=== PATIENT | male | born 1945 | race Caucasian/White ===

== ENCOUNTER 2020-01-18 14:43 | Emergency (ER) | payer SELFPAY ==
[~2020-01-18] VITALS: Ht 177.8 cm; Wt 68.2 kg
[2020-01-18 16:14] VITALS: BP 139/85
[2020-01-18 16:54] LABS: GLUCOSE,POINT OF CARE 76 MG/DL (70-110)
== END 2020-01-18 17:50 | disposition left against medical advice (07) ==
LOC: EMS 14:48
DX: K62.3 Rectal prolapse (principal); F20.9 Schizophrenia, unspecified; J43.9 Emphysema, unspecified

== ENCOUNTER 2020-01-19 17:19 | Emergency (ER) | payer SELFPAY ==
[~2020-01-19] VITALS: Ht 167.6 cm; Wt 90.0 kg
[2020-01-19] MEDS ORDERED: ACETAMINOPHEN 500 MG TABLET PO ONE (18:30)
[2020-01-19 18:35] VITALS: BP 141/74
== END 2020-01-19 18:39 | disposition home or self-care (01) ==
LOC: EMS 17:19
DX: K62.3 Rectal prolapse (principal)